=== PATIENT | female | born 1985 | race Caucasian/White ===

== ENCOUNTER 2017-12-14 14:09 | Emergency (ER) | END 2017-12-14 17:19 | disposition home or self-care (01) ==

== ENCOUNTER 2017-12-16 07:20 | Emergency (ER) | END 2017-12-16 09:36 | disposition home or self-care (01) ==

== ENCOUNTER 2017-12-31 22:05 | Emergency (ER) | END 2018-01-01 03:38 | disposition home or self-care (01) ==

== ENCOUNTER 2018-01-04 22:31 | Emergency (ER) | END 2018-01-05 01:55 | disposition home or self-care (01) ==